=== PATIENT | female | born 1985 | race Caucasian/White ===

== ENCOUNTER 2023-01-02 12:33 | Emergency (ER) | payer BC ==
--- OUTSIDE RECORDS SUMMARY | 2023-01-02 12:36 | XMS REPORT | Continuity of Care Document ---
:1985 Author Organization [facility] t Address [address] [facility] [address] [place] [address] Care Team Providers Name Role Phone Jovi Wilks DO Primary Care Physician Mackenzie Rivera MA Attending Clinician Unavailable Lashaun Jovi Attending Clinician Roman RICHARDSON, Sebastien Shafer Attending Clinician [phone] Lg Jones CPhT Attending Clinician Unavailable Kale RICHARDSON, Ann-Marie Andrews Attending Clinician Srikanth Cotto MD Attending Clinician Vipul VALDIVIA, Zahida Catalan Attending Clinician FRANCE FRASER Attending Clinician Unavailable FRANCE FRASER Attending Clinician Unavailable Zhane Attending Clinician Unavailable Martita Hunt PA-C Attending Clinician Zahira Enrique MD Attending Clinician ZAHIRA ENRIQUE Attending Clinician Unavailable Doctor Unassigned, [place] Attending Clinician Unavailable Reba Cunha Attending Clinician PATI RAMSAY Attending Clinician Unavailable PATI RAMSAY Attending Clinician Unavailable Only, Adc Test Attending Clinician Unavailable Janie Linda Attending Clinician JANIE AVERY Attending Clinician Unavailable Zhane Admitting Clinician Unavailable EBRAHIM, RANIA Admitting Clinician Unavailable Payers Payer Name Policy Type Policy Number Effective Date Expiration Date S ource [place] [id number] 2011 00:00:00 OUT [place] [id number] 2011 00:00:00 OF [place] (PPO) Problems Condition Condition Condition Status Onset Resolution Last Treating Co mments Source Name Details Category Date Date Treatment Clinician Date Generalize Generalize Disease Active 2020-0 M ethodi d anxiety d anxiety 03-27 disorder disorder 00:00: Hospit a 00 l Irritable Irritable Disease Active 2019-0 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 00:00: Hospit a with with 00 l diarrhea diarrhea Gastro-eso Gastro-eso Disease Active 2020-0 M ethodi phageal phageal 03-27 reflux reflux 00:00: Hospita disease disease 00 l without without esophagiti esophagiti s s Overweight Overweight Disease Active 2020-0 M ethodi 03-27 st 00:00: Hospita 00 l Calculus Calculus Disease Active 2020-0 Metho di of kidney of kidney 03-27 00:00: Hospita 00 l Endometrio Endometrio Disease Active 2020-0 M ethodi sis sis 03-27 00:00: Hospita 00 l Pelvic Pelvic Disease Active 2020-0 Methodi pain pain 03-01 00:00: Hospita 00 l Dysmenorrh Dysmenorrh Disease Active 2019-0 [address] e[address] ea [address] 00:00: Hospita 00 l No known No known Disease Unive rs active active ity of problems problems [facility] Allergies, Adverse Reactions, Alerts Allergy Allergy Status Severity Reaction(s) Onset Inactive Treating Comm ents Source Name Type Date Date Clinician Latex Propensi Active Hives Univers ty to 3-08 ity of adverse 00:00: [place] reaction 00 Medical s Branch LATEX DRUG Active Hives Univers INGREDI 3-08 ity of 00:00: [place] 00 Medical Branch Latex Propensi Active Itching Methodi ty to 4-15 st adverse 00:00: Hospita reaction 00 l s to drug Family History Family Member Diagnosis Comments Start Date Stop Date Source Natural brother Asthma [facility] Natural father Other [facility] Natural mother Crohn's disease Metho [facility] Paternal grandfather Hyperlipidemia [facility] Paternal grandmother Cancer [facility] odist [facility] Social History Social Habit Start Date Stop Date Quantity Comments Source Sexual orientation [facility] Alcohol intake 2022-10-20 2022-10-20 Current drinker [facility]o dist 00:00:00 00:00:00 of alcohol [facility] (finding) History of Social 2022-10-20 2022-10-[address] function 00:00:00 00:00:00 Hospital Tobacco use and 2022-04-27 2022-04-27 Smokeless [facility] exposure 00:00:00 00:00:00 tobacco non-user Hospital Exposure to 2021-07-27 2021-08-06 Not sure University of SARS-CoV-2 (event) 00:00:00 09:23:00 [facility] Alcohol Comment 2018-07-25 2018-07-25 social [facility] 00:00:00 00:00:00 Hospital Sex Ass[birth year] At [birth year] Universit y of 00:00:00 00:00:00 [facility] Smoking Status Start Date Stop Date Source Never smoked tobacco [facility] Medications Ordered Filled Start Stop Current Ordering Indication Dosage Frequency Signature Comments Components Source Medication Medication Date Date Medication? Clinician (SIG) Name Name riFAXimin 2022- No [id number] 550mg Q.83274424 Take 1 Methodi (XIFAXAN) 9-15 09-30 [id number] tablet s t 550 mg 00:00: 04:59 3D (550 mg Hospita tablet 00 :00 total) by l mouth 3 (three) times a day for 14 days. sertraline Yes 100mg QD Take 1 Meth edwin (ZOLOFT) 8-[address] 100 MG 00:00: (100 mg Hospita tablet 00 total) by l mouth daily. dicyclomine Yes [id number] TAKE 1 Methodi (BENTYL) 20 7-[address] mg tablet 00:00: MOUTH 4 Hospi ta 00 TIMES A l DAY NEEDED (ABDOMINAL CRAMPS) FOR UP TO 30 DAYS. dicyclomine 2022- No [id number] TAKE 1 [facility] (BENTYL) 20 7-18 07-[address] mg tablet 00:00: 00:00 MOUTH 4 Hosp radha 00 :00 TIMES A l DAY NEEDED (ABDOMINAL CRAMPS) FOR UP TO 30 DAYS. sertraline No TAKE 1 Meth edwin (ZOLOFT) 09-13-[address] 100 MG 00:00: 00:00 MOUTH Hospita tablet 00 :00 EVERY DAY l FLUoxetine 2022- No 20mg QD Take 20 mg [facility] (PROzac) 20 08-[address] MG capsule 14:31: 00:00 nightly. Ho spita 34 :00 l dicyclomine 2022- No [id number] 20mg Q.25D Take 1 Methodi (BENTYL) 20 08-19-18 tablet (20 s t mg tablet 00:00: 00:00 mg total) Ho spita 00 :00 by mouth 4 l (four) times a day as needed (abdominal cramps) for up to 30 days. riFAXimin No [id number] 550mg Q.79993272 Take 1 Method[facility] (XIFAXAN) 08-19-11 [id number] tablet s t 550 mg 00:00: 04:59 3D (550 mg Hospita tablet 00 :00 total) by l mouth 3 (three) times a day for 14 days. fluconazole No Take 1 Met hodi (DIFLUCAN) 04-[address] 150 MG 00:00: 00:00 mouth Hospita tablet 00 :00 every 72 l hours for 3 total doses. nystatin-tr Apply Meth edwin iamcinolone 04-[address] (MYCOLOG 00:00: 00:00 to Hospita II) 00 :00 affected l 100,000-0.1 area(s) unit/g-% twice cream daily. Therapy should be discontinu ed when control is achieved or if symptoms persist for >25 days of therapy. nitrofurant 2022- No [id number] 100mg Q.5D Take 1 Methodi oin, 1 02-[address] macrocrysta 00:00: 05:59 (100 mg Ho spita l-monohydra 00 :00 total) by l te, mouth 2 (Macrobid) (two) 100 MG times a capsule day for 7 days. sertraline 2022- No 100mg QD Take 1 Met hodi (ZOLOFT) 03-12 07-[address] 100 MG 00:00: 00:00 (100 mg Hospita tablet 00 :00 total) by l mouth daily. FLUoxetine Yes 10mg Take 10 mg U nivers 10 mg 6-09 by mouth ity of capsule 09:31: daily. [address] FLUoxetine 0 Yes 10mg Take 10 mg U nivers 10 mg 6-09 by mouth ity of capsule 09:31: daily. [address] diclofenac 2018-02 No Take 2 Meth edwin (VOLTAREN) 0-[address] 50 MG EC 00:00: 00:00 mouth, Hospit a tablet 00 :00 then 1 l tablet by mouth every 8 hours, as directed, for pelvic pain. Immunizations Ordered Immunization Filled Immunization Date Status Commen ts Source Name Name Tdap Unknown Completed [facility] Vital Signs Vital Name Observation Time Observation Value Comments Source Systolic blood 2021-08-06 14:26:00 106 mm[facility]Hg[facility] Diastolic blood 2021-08-06 14:26:00 71 mm[Hg] [facility] [place] Heart rate 2021-08-06 14:26:00 76 /min [facility] Body temperature 2021-08-06 14:26:00 37.17 Rika [facility] Respiratory rate 2021-08-06 14:26:00 18 /min [facility] Body height 2021-08-06 14:26:00 160 cm [facility] Body weight 2021-08-06 14:26:00 72.031 kg [facility] BMI 2021-08-06 14:26:00 28.13 kg/m2 [facility] Oxygen saturation in 2021-08-06 14:26:00 99 /min [facility] Arterial blood by [facility] Pulse oximetry Branch Systolic blood 2022-10-20 18:01:00 109 mm[Hg] Method [facility] pressure Diastolic blood 2022-10-20 18:01:00 78 mm[Hg] [facility] pressure Heart rate 2022-10-20 18:01:00 69 /min [facility] Body height 2022-10-20 18:01:00 160 cm [facility] Body weight 2022-10-20 18:01:00 72.576 kg [facility] BMI 2022-10-20 18:01:00 28.34 kg/m2 [facility] Body temperature 2022-08-19 19:20:00 36.72 Rika [facility] Respiratory rate 2022-08-19 19:20:00 12 /min [facility] Procedures Procedure Date / Time Performing Clinician Source Performed THYROID STIMULATING 2022-10-20 18:15:00 [facility] HORMONE URINALYSIS, AUTOMATED 2022-10-20 18:15:00 [facility] WITH MICROSCOPY LIPID PANEL 2022-10-20 18:15:00 [facility] Ho spital CBC WITH PLATELET AND 2022-10-20 18:15:00 [facility] DIFFERENTIAL COMPREHENSIVE METABOLIC 2022-10-20 18:15:00 [facility] PANEL HEMOGLOBIN A1C 2022-10-20 18:15:00 [facility] spital VITAMIN D 25 HYDROXY 2022-10-20 18:15:00 [facility] LEVEL LIPIDS, CALCULATED 2022-10-20 18:15:00 [facility] ZZCELIAC DISEASE 2022-08-19 20:09:[address] [facility] DIAGNOSTIC PANEL (TTG, Soni TRACI) VITAMIN B12 LEVEL 2022-08-19 20:09:00 [facility] Soni FERRITIN LEVEL 2022-08-19 20:09:[address] [facility] Soni TOTAL IRON BINDING 2022-08-19 20:09:00 [facility] CAPACITY Soni CBC WITH PLATELET AND 2022-08-19 20:09:00 Schiesser, Sebastien [facility] DIFFERENTIAL Soni COMPREHENSIVE METABOLIC 2022-08-19 20:09:00 Sebastien [facility] PANEL Soni C-REACTIVE PROTEIN 2022-08-19 20:09:00 [facility] Soni NUSWAB BV AND MICHELLE, 2022-04-27 [facility]:27[facility] WILLIAM URINE CULTURE 2022-03-26 16:27:00 Zahida Lindo [facility] HB ECG ROUTINE & RHYTHM 2021-08-06 14:34:19 Martita Hunt [facility] Plan of Care Planned Activity Planned Date Details Comments Source Future Scheduled 2022-12-22 Screening for [facility] Test 04:45:08 malignant neoplasm of cervix (procedure) [code = 711691791] Future Scheduled 2022-12-22 INFLUENZA VACCINE Method [facility] Test 04:45:08 (#1) [code = INFLUENZA VACCINE (#1)] Future Scheduled 2022-12-22 COVID-19 VACCINE [facility] Test 04:45:08 (#1) [code = COVID-19 VACCINE (#1)] Future Scheduled 2022-12-22 Hepatitis [facility] Test 04:45:08 screening (procedure) [code = 574929825] Encounters Start End Encounter Admission Attending Care Care Encounter Source Date/Time Date/Time Type Type Clinicians Facility Department ID 2022-11-12 2022-11-12 Orders Miguel, 1.2.840.1 [id number] Methodi 00:00:00 00:00:00 Only Mackenzie 82286.1.[address] 3.430.2.7 Hospit a .3.751359 l .8 2022-10-20 2022-10-22 Office Jovi Wilks 1.2.840.1 [id number] Methodi 13:00:00 16:41:41 Visit Belinda 90989.1.[address] 3.430.2.7 Hospit a .3.451553 l .8 2022-10-20 2022-10-22 Outpatient JOVI WILKS [facility] [id number] [facility] 00:00:00 00:00:00 029 Method i 2022-10-20 2022-10-20 Travel 1.2.840.1 1.2.474.820 [id number] Methodi 00:00:00 00:00:[address] 3.430.2.7 0.2.7.3.698 Ho spita .3.156469 084.8 l .8 2022-10-06 2022-10-06 Refill Jovi Wilks 1.2.840.1 [id number] Methodi 00:00:00 00:00:[address] 3.430.2.7 Hospit a .3.348432 l .8 2022-09-16 2022-09-16 Refill Roman, 1.2.840.1 [id number] Methodi 00:00:00 00:00:00 Sebastien Shafer [address]99.1.[address] 3.430.2.7 Hospit a .3.639708 l .8 2022-09-12 2022-09-12 Refill Schhelenaser, 1.2.840.1 [id number] Methodi 00:00:00 00:00:00 Sebastien Shafer 97268.1.[address] 3.430.2.7 Hospit a .3.480230 l .8 2022-09-12 2022-09-12 Refill Jovi Wilks 1.2.840.1 [id number] Methodi 00:00:00 00:00:[address] 3.430.2.7 Hospit a .3.439267 l .8 2022-08-19 2022-08-19 Office Roman, 1.2.840.1 [id number] Methodi 14:00:00 15:16:19 Visit Sebastien Shafer 69128.1.[address] 3.430.2.7 Hospit a .3.640882 l .8 2022-08-19 2022-08-19 Outpatient ROMAN [facility] [id number] Cosmos 00:00:00 00:00:[address] SEBAST[address]EN [address] 2022-08-19 2022-08-19 Telephone Robert, 1.2.840.1 [id number] Methodi 00:00:00 00:00:[address] 3.430.2.7 Hospit a .3.022689 l .8 2022-07-16 2022-07-16 Travel 1.2.840.1 1.2.207.053 [id number] Methodi 00:00:00 00:00:[address] 3.430.2.7 0.2.7.3.698 Ho spita .3.358148 084.8 l .8 2022-06-22 2022-06-22 Abstract Ann-Marie Henley 1.2.840.1 [id number] Methodi 00:00:00 00:00:[address] 3.430.2.7 Hospit a .3.864921 l .8 2022-06-17 2022-06-17 Travel 1.2.840.1 1.2.413.220 [id number] Methodi 00:00:00 00:00:[address] 3.430.2.7 0.2.7.3.698 Ho spita .3.442239 084.8 l .8 2022-04-27 2022-04-27 Office Yadiel 1.2.840.1 [id number] Methodi 09:20:00 11:05:26 Visit Srikanth 67393.1.[address] 3.430.2.7 Hospit a .3.296304 l .8 2022-04-27 2022-04-27 Outpatient YADIEL [facility] [id number] [facility] 00:00:00 00:00:00 SRI[address] 2022-03-26 2022-03-26 Office Vipul, 1.2.840.1 [id number] Methodi 09:15:00 11:38:49 Visit Zahida Catalan 81157.1.1 307 [address] t 3.430.2.7 Hospit a .3.466284 l .8 2022-03-26 2022-03-26 Travel 1.2.840.1 1.2.803.882 [id number] Methodi 00:00:00 00:00:[address] 3.430.2.7 0.2.7.3.698 Ho spita .3.488750 084.8 l .8 2022-03-26 2022-03-26 Outpatient VIPUL [facility] [id number] Cosmos 00:00:00 00:00:00 ZAHIDA [address] 2022-03-24 2022-03-24 Telephone Yadiel, 1.2.840.1 [id number] Methodi 00:00:00 00:00:[address] 3.430.2.7 Hospit a .3.167158 l .8 2021-11-26 2021-11-26 Outpatient R FRANCE FRASER [facility] 1 [id number] [facility] 10:30:00 10:30:00 FRANCE FRASER [facility] 2021-10-13 2021-10-13 Outpatient FOG_Luo_Ran AOSM AO 634 8036-20 Tanya 00:00:00 00:00:00 Bud [id number] [facility] 2021-10-07 2021-10-07 Outpatient FOG_Luo_Ran AOSM AOSM 634 8036-20 Tanya 00:00:00 00:00:00 Bud [id number] [facility] 2021-08-06 2021-08-06 Office Martita Hunt [facility] 1.2.840.114 [id number] [facility] 09:30:00 10:00:[address] [facility] 350.1.13.10 it[place] [id number] [address] OFFICE [facility] 2021-08-06 2021-08-06 Outpatient R IVA [facility] [id number] Univers 09:30:00 09:30:00 ZAHIRA ity [facility] 2021-07-29 2021-07-29 Patient Doctor [facility] 1.2.840.114 [id number] Univers 00:00:00 00:00:00 Secure Msg Unassigned, HEALTH 350.1.13.10 ity [place] [id number] [address] OFFICE [facility] 2021-07-06 2021-07-06 Telephone Anupam [facility] 1.2.142.810 [id number] Univers 00:00:00 00:00:00 Sinju HEALTH 350.1.13.10 it y of [place] 4.2.7.2.686 [place] [id number] [address] OFFICE [facility] 2021-06-03 2021-06-03 Outpatient R PATI RAMSAY [facility] [id number] Univers 11:30:00 11:30:00 PATI RAMSAY [facility] 2021-06-02 2021-06-02 Orders Doctor ANN-MARIE 1.2.840.114 [id number] Univers 00:00:00 00:00:00 Only Unassigned, ELLIOT 350.1.13.10 ity of [place] [facility] 4.2.7.2.686 Angel[place] as [id number] [address] 2021-05-20 2021-05-20 Outpatient R PATI RAMSAY [facility] [id number] Univers 08:00:00 23:59:00 PATI RAMSAY [facility] 2021-05-19 2021-05-19 Outpatient R PATI RAMSAY [facility] [id number] Univers 08:17:21 23:59:00 PATI RAMSAY [facility] 2021-05-19 2021-05-19 [facility] MICHEL Ramsay 1.2.840.114 [id number] Univers 08:17:21 23:59:00 Encounter Pati Y HEALTH 350.1.13.10 ity of [place] [id number] [facility] [address] 2021-05-19 2021-05-19 Hospital Nav MICHEL 1.2.840.114 [id number] Univers 08:16:55 08:16:55 Encounter Pati Y HEALTH 350.1.13.10 ity of [place] [id number] [facility] [address] 2021-05-15 2021-05-15 Laboratory Only, Adc Test [facility] 1.2.840. 114 [id number] Univers 16:15:00 16:30:00 [facility] 350.1.13.10 [place] [id number] [facility] [address] 2021-05-15 2021-05-15 Outpatient R PATI RAMSAY [facility] [id number] Univers 16:15:00 16:15:00 [facility] 2021-05-15 2021-05-15 Orders Doctor ANN-MARIE 1.2.840.114 [id number] Univers 00:00:00 00:00:00 Only Unassigned, ELLIOT 350.1.13.10 ity of [place] [facility] 4.2.7.2.686 [place] as [id number] [facility] [address] 2021-05-12 2021-05-12 Office MICHEL Ramsay 1.2.362.387 [id number] Univers 10:30:00 11:00:00 Visit Pati Y HEALTH 350.1.13.10 i ty of [place] [id number] [facility] [address] 2021-05-12 2021-05-12 Outpatient R PATI RAMSAY [facility] [id number] Univers 10:30:00 10:30:00 PATI RAMSAY [facility] 2021-05-12 2021-05-12 [facility] [id number] Univers 10:30:00 10:30:00 PATI RAMSAY [facility] 2021-05-12 2021-05-12 Outpatient R PATI RAMSAY [facility] [id number] Univers 10:30:00 10:30:00 PATI RAMSAY [facility] 2021-05-05 2021-05-05 Emergency Ebneliliya, [facility] 1.2.840.114 [id number] Univers 17:50:00 20:06:00 Janie SHIELDS 350.1.13.10 i ty [facility] 4.2.7.2.686 [facility] [id number] [place] [id number] Branch 2021-05-05 2021-05-05 Emergency X BENNIE, [facility] ERT [id number] Univers 17:50:00 20:06:00 JANIE eason [facility] 2020-10-21 2020-10-21 Outpatient [facility] [id number] [place] 00:00:00 00:00:00 SRIKANTH [address] 2020-03-03 2020-03-03 Outpatient [facility], [facility] [id number] [place] 00:00:00 00:00:00 SRIKANTH [address] 2019-12-19 2019-12-19 Outpatient [facility] [id number] [facility] 00:00:00 00:00:00 SRIKANTH [address] 2019-10-23 2019-10-23 Outpatient [facility] [id number] [facility] 00:00:00 00:00:00 SRIKANTH [address] Results Test Description Test Time Test Comments Results Result Comments Source Thyroid stimulating hormone 2022-10-20 21:17:00 Test Item Value Reference Range Interpretation Comme nts TSH (test code = 1.10 See_Comment [Automated message] The 7240081) system which ge nerated this result transmit luis reference range: 0.40 - 4 .00 uIU/mL. The reference r pa was not used to interpr et this result as normal/abnor mal. LEONARD (test code = LEONARD) Items were attached to this order: xgld [facility] 25 hydroxy [id number] 21:17:00 Test Item Value Reference Range Interpretation Comments Vitamin D, 25-hydroxy 22 ng/mL 30-100 L (test code = 1988-3) LEONARD (test code = LEONARD) Items were attached to this order: xgld Lab Interpretation (test Abnormal code = 68897-7) [facility] [id number] 21:06:00 Test Item Value Reference Range Interpretation Comments Cholesterol (test 267 mg/dL 140-200 H code = 2093-3) Triglycerides (test 75 mg/dL <=150 code = 2571-8) HDL cholesterol (test 52 mg/dL >=40 code = 2085-9) Cholesterol/HDL ratio 5.1 ratio Risk A ssociated (test code = 97988-7) with C hol/HDL ratios: Risk Males Females1 /2 average 3.43 3.27average 4.9 7 4.442X average 9.55 7.053X average 23.39 11.0 LEONARD (test code = LEONARD) Items were attached to this order: xgldLAB ORDER FASTING [356592]Question s: Quantity: 1 Order Class: (department specific) Priority: (department specific) Modifiers: (none) Order Defaults Phase of Care: The maximum orderable quantity for this procedure is 3 Quantity: LAB ORDER FASTING [916421] Questions: Quantity: 1 Order Class: (department specific) Priority: (department specific) Modifiers: (none) Order Defaults Phase of Care: The maximum orderable quantity for this procedure is 3 Quantity: Lab Interpretation Abnormal (test code = 16255-8) [facility], [id number] 21:06:00 Test Item Value Reference Range Interpretation Comments LDL cholesterol calculated 200 mg/dL 60-130 H (test code = 2876) VLDL cholesterol becky (test 15 mg/dL 5-30 code = 3568) LEONARD (test code = LEONARD) Items were attached to this order: xgld Lab Interpretation (test Abnormal code = 07559-0) [facility] metabolic [id number] 21:05:00 Test Item Value Reference Range Interpretation Comments Hemolysis (test <15 <=15 code = 3440) Sodium (test code = 140 mmol/L 135-221 5001064) Potassium (test 4.0 mmol/L 3.5-5.0 code = 1153209) Chloride (test code 103 mmol/L 98-107 = 2075-0) CO2 (test code = 25 mmol/L 23-32 2027-) Glucose (test code 83 mg/dL 60-100 = 2345-7) BUN (test code = 16 mg/dL 7-17 5187125) Creatinine (test 0.7 mg/dL 0.6-1.0 code = 1702379) eGFR MDRD (test 93.6 See_Comment If code = 8846) Spanish, multi ply the GFR by 1.21 0. [Automated mess age] The system [employer] generated this result transmit luis reference range : 60.0 - 137.0 mL/min/1.73m^2. The reference range was not used to interpret this result as normal/abnormal . Total bilirubin 0.3 mg/dL 0.2-1.3 (test code = 1974-2) Alkaline 118 U/L 38-126 phosphatase (test code = 6768-6) Protein (test code 7.0 g/dL 6.0-8.5 = 2885-2) Albumin (test code 4.2 g/dL 3.5-5.0 = 9315643) Calcium (test code 9.3 mg/dL 8.4-10.6 = 8338929) AST (test code = 15 U/L 8-35 0-8) ALT (test code = 12 U/L 7-44 2-6) Anion gap (test 16.0 10.0-20.0 code = 8582455) BUN/creatinine 23.0 7.0-25.0 ratio (test code = 3097-3) LEONARD (test code = Items were LEONARD) attached to this order: xgld [facility] [id number] 20:55:00 Test Item Value Reference Range Interpretation Comments Hemoglobin A1C 4.9 % Glycated (test code = Hemoglobin 4548-4) Evaluation Excellent Contr ol < 6.4 Non-Diabe tic ranges < 5.6 Estimated average 85 glucose (eAG) (test code = 2783) LEONARD (test code = Items were LEONARD) attached to this order: xgld [facility], automated with [id number] 20:20:00 Test Item Value Reference Range Interpretation Comments Color, UA (test code Yellow Colorless - = 1268161) Yellow Clarity, UA (test Clear clear code = 8862) Specific gravity, UA 1.010-1.030 (test code = 9506911) pH, UA (test code = 6.0 5.0-8.5 3068831) Leukocyte esterase, Negative NEGATIVE UA (test code = 2883775) Nitrite, UA (test Negative NEGATIVE code = 7070921) Protein, UA (test NORMAL See_Comment [Automate d code = 8865) message] The system which generated this result transmit luis reference range : NORMAL, < 30 mg/dL. The reference range was not used to interpret this result as normal/abnormal . Glucose, UA (test NORMAL See_Comment [Automate d code = 8863) message] The system which generated this result transmit luis reference range : NORMAL, < 50 mg/dL. The reference range was not used to interpret this result as normal/abnormal . Ketones, UA (test NORMAL See_Comment [Automate d code = 8864) message] The system which generated this result transmit luis reference range : NORMAL, < 5 mg/ dL. The reference range was not u sed to interpret th is result as normal/abnormal . Urobilinogen, UA NORMAL See_Comment [Automated (test code = 3505705) messag e] The system which generated this result transmit luis reference range : NORMAL, < 1 E.U./dL. The reference range was not used to interpret this result as normal/abnormal . Bilirubin, UA (test Negative NEGATIVE code = 0370669) Blood, UA (test code NEGATIVE NEGATIVE = 3096399) WBC, UA (test code = 2 See_Comment [Autom ated 66260-8) message] The system which generated this result transmit luis reference range : 0 - 5 / HPF. The reference range was not used to interpret this result as normal/abnormal . RBC, UA (test code = 2 See_Comment [Autom ated 5320746) message] The system which generated this result transmit lius reference range : 0 - 5 / HPF. The reference range was not used to interpret this result as normal/abnormal . Bacteria, UA (test RARE NONE - OCC / HPF code = 4391962) Squamous epithelial 51 See_Comment H [Automa luis cells, UA (test code message ] The = 3009) system which generated this result transmit luis reference range : 0 - 16 / LPF. The reference range was not used to interpret this result as normal/abnormal . Mucus, UA (test code MANY NONE - MOD / LPF = 8247-9) LEONARD (test code = LEONARD) Items were attached to this order: xgld Lab Interpretation Abnormal (test code = 38723-3) [facility] with platelet and [id number] 20:09:00 Test Item Value Reference Range Interpretation Comments WBC (test code = 6690-2) 8.3 10^3/uL 4.0-10.6 RBC (test code = 9631749) 4.55 10^6/uL 4.15-4.90 HGB (test code = 280) 14.6 g/dL 12.0-16.0 HCT (test code = 3379980) 44.0 % 37.0-48.0 MCV (test code = 7927764) 96.7 fL 80.0-98.0 MCH (test code = 8729476) 32.1 pg 28.0-33.0 MCHC (test code = 33.2 g/dL 32.0-36.0 1013868) RDW (test code = 2973) 12.0 % 10.6-15.4 Platelet count (test code 328 10^3/uL 150-400 = 777-3) MPV (test code = 7534518) 9.4 fL 9.4-12.4 Nucleated RBC (test code 0.0 % 0.0-1.0 = 254) Absolute nRBC (test code 0.0 10^3/uL 0.0-0.0 = 4301611) Neutrophils (test code = 64.2 % 45.0-74.0 0599217) Lymphocytes (test code = 25.7 % 16.0-45.0 736-9) Monocytes (test code = 7.9 % 4.0-10.0 5905-5) Eosinophils (test code = 1.2 % 0.0-5.0 1352) Basophils (test code = 0.6 % 0.0-2.0 706-2) Immature granulocytes 0.4 % 0.0-1.0 (test code = 1594) Neutrophils, absolute 5.4 10^3/uL 1.6-9.0 (test code = 1801) Lymphocytes, absolute 2.1 10^3/uL 0.4-4.4 (test code = 8514298) Monocytes, absolute (test 0.7 10^3/uL 0.2-1.7 code = 1259298) Eosinophils, absolute 0.1 10^3/uL 0.0-1.7 (test code = 1353) Basophils, absolute (test 0.1 10^3/uL 0.0-0.3 code = 929) Immature granulocytes, 0.0 10^3/uL 0.0-0.0 absolute (test code = 2839) LEONARD (test code = LEONARD) Items were attached to this order: [facility]12 [id number] 16:43:00 Test Item Value Reference Interpretation Comments Range Vitamin B12 300 pg/mL 200-1100 Please Note: A lthough the (test code = reference range for 2131-10) [id number] is 2 00-1100 pg/mL, it has b een reported that between5 a nd 10% of patients with v alues between 200 and 400pg/m L may experience neur opsychiatric and hematologic abnormalities due to occult B 12 deficiency; les s than 1%of patients with v alues above 400 pg/mL will have symptoms. LEONARD (test FASTING:UNKNOWN code = LEONARD) FASTING: UNKNOWN RAC (test Performing code = RAC) Organization Information: Site ID: BELLA Name: [facility] Address: [address] [place] [address] Director: [facility] HospitalFerritin [id number] 16:43:00 Test Item Value Reference Range Interpretation Comments Ferritin level (test 41 ng/mL 16154 code = 2276-4) LEONARD (test code = LEONARD) FASTING:UNKNOWN FASTING: UNKNOWN RAC (test code = RAC) Performing Organization Information: Site ID: RGA Name: [facility] Address: [address] [place] [id number] Director: [facility] HospitalC-reactive [id number] 16:43:00 Test Item Value Reference Range Interpretation Comments CRP (test code = 5.1 mg/L <=8.0 1988-5) LEONARD (test code = FASTING:UNKNOWN FASTING: LEONARD) UNKNOWN RAC (test code = Performing Organization RAC) Information: Site ID: DOMINGAA Name: [facility] Address: [address] [place] [address] Director: Vicenta Munson [facility] disease [id number] 16:43:00 Test Item Value Reference Interpretation Comments Range Interpretation (test SEE NOTE No sero logical code = 38465-8) evidence of celiac disease.tTG IgA may normalize i n individuals wit h celiac disease whomaintain a gluten-free diet. Consider HLA DQ2 and EP5vibivls to rule out celiac disease. Celiac disease isextremely rar e in the absence of DQ2 or DQ8. Tissue <1.0 U/mL Units Value transglutaminase Ab, Interpr etation-- IgA (test code = --------- 84032-3) < 1 5.0 Antibody no t detected> or = 15.0 Antibody detected IgA (test code = 191 mg/dL 47-310 2458-8) LEONARD (test code = LEONARD) FASTING:UNKNOWN FASTING: UNKNOWN RAC (test code = RAC) Performing Organization Information: Site ID: EZ Name: [facility], Address: [address] [place] [address] Director: Marie Bolden MD,PhD,ELENA [facility] iron binding [id number] 16:43:00 Test Item Value Reference Range Interpretation Comments Iron level (test 57 See_Comment [Automated code = 2498-4) message] The system which generated this result transmit luis reference range : 40 - 190 mcg/dL . The reference range was not u sed to interpret th is result as normal/abnormal . Iron binding 280 See_Comment [Automated capacity (test message] The code = 2500-7) system which generated this result transmit luis reference range : 250 - 450 mcg/d L (calc). The reference range was not used to interpret this result as normal/abnormal . Iron saturation 20 See_Comment [Automated (test code = message] The 2502-3) system which generated this result transmit luis reference range : 16 - 45 % (calc ). The reference range was not u sed to interpret th is result as normal/abnormal . LEONARD (test code = FASTING:UNKNOWN LEONARD) FASTING: UNKNOWN RAC (test code = Performing RAC) Organization Information: Site ID: RGA Name: [facility] Address: [address] [place] [phone] Director: Vicenta Munson [facility] CampusKevinuSwab BV and Michelle, [id number] 12:11:00 Test Item Value Reference Interpretation Comments Range Atopobium Low - 0 Score vaginae (test code = 08190-9) BVAB 2 (test Low - 0 Score code = 91369-7) Megasphaera Low - 0 Score Calculate total score by species (test adding the 3 i ndividual code = bacterialvagino sis (BV) 17022-4) marker scores t ogether. Total score jhonatan nterpreted as follows:Tota l score 0-1: Indicates the a bsence of BV.Total score 2: Indeterminate f or BV. Additional clin ical data should be evalu ated to establish a angel gnosis.Total score 3-6: Keely cates the presence of BV. This test was developed a nd its performance characteristics determined by [employer]. It has not been cleared or appr ovedby the Food and Drug Administration. Michelle Negative Negative albicans, WILLIAM (test code = 03709-8) C. glabrata, Negative Negative DNA (test code = 42302-7) LEONARD (test code Test(s) = LEONARD) 135302-Hrtlasu albicans, WILLIAM; 700905-Gxsdjna glabrata, NAAwas developed and its performance characteristics determinedby [facility]. It has not been cleared or approved by the Foodand Drug Administration.Per formed at: 01 - [facility] [id number] [id number] Director: George Huynh MD, Phone: [phone] [facility] CampusUrine [id number] 03:06:00Urine cultureMixed urogenital floraLess than 10,000 colonies/mL [facility]
--- NOTE | 2023-01-02 13:04 | EDPHYS ---
Physician Documentation [facility] Name: Maria Luisa Calzada Age: 37 yrs Sex: Female : 1985 Arrival Date: 01/02/2023 Time: 12:33 Bed IW5 Private MD: ED Physician Dustin Juarez HPI: 01/02 12:56 This 37 yrs old Female presents to ER via Ambulatory with complaints of Ear Pain. jh7 12:56 The patient presents with pain, moderate. The complaints affect the left ear. Onset: jh7 The symptoms/episode began/occurred acutely. Associated signs and symptoms: The patient has no apparent associated signs or symptoms. Historical: - Allergies: 12:59 Latex, Natural Rubber; cm10 - Home Meds: 12:56 sertraline oral [Active]; cm10 - Immunization history:: Adult Immunizations unknown. - Social history:: Smoking status: Patient denies any tobacco usage or history of. ROS: 12:56 Constitutional: Negative for fever, chills, and weight loss, Eyes: Negative for injury, jh7 pain, redness, and discharge, Neck: Negative for injury, pain, and swelling, Cardiovascular: Negative for chest pain, palpitations, and edema, Respiratory: Negative for shortness of breath, cough, wheezing, and pleuritic chest pain, Skin: Negative for injury, rash, and discoloration, Neuro: Negative for headache, weakness, numbness, tingling, and seizure, 12:56 ENT: Positive for ear pain, 12:56 All other systems are negative, Exam: 12:56 Constitutional: This is a well developed, well nourished patient who is awake, alert, jh7 and in no acute distress. Head/Face: Normocephalic, atraumatic. Neck: Trachea midline, no thyromegaly or masses palpated, and no cervical lymphadenopathy. Supple, full range of motion without nuchal rigidity, or vertebral point tenderness. No Meningismus. Cardiovascular: Regular rate and rhythm with a normal S1 and S2. No gallops, murmurs, or rubs. Normal PMI, no JVD. No pulse deficits. Respiratory: Lungs have equal breath sounds bilaterally, clear to auscultation and percussion. No rales, rhonchi or wheezes noted. No increased work of breathing, no retractions or nasal flaring. Skin: Warm, dry with normal turgor. Normal color with no rashes, no lesions, and no evidence of cellulitis. MS/ Extremity: Pulses equal, no cyanosis. Neurovascular intact. Full, normal range of motion. Neuro: Awake and alert, GCS 15, oriented to person, place, time, and situation. Normal gait. 12:56 ENT: External ear(s): are unremarkable, Ear canal(s): are normal, TM's: are normal, no acute changes, Mouth: is normal, Dental exam: normal, Vital Signs: 12:55 BP 124 / 87; Pulse 70; Resp 18 S; Temp 98.3(TE); Pulse Ox 100% on R/A; Weight 72.57 kg; cm10 Height 5 ft. 3 in. ; Pain 4/10; 12:55 Body Mass Index 28.34 (72.57 kg, 160.02 cm) cm10 12:55 Pain Scale: Adult cm10 MDM: 12:37 Patient medically screened. [facility] 13:30 Differential diagnosis: otitis media, otitis externa, ruptured TM, foreign body, acute jh7 otalgia. Data reviewed: vital signs, nurses notes. I considered the following discharge prescriptions or medication management in the emergency department Medications were administered in the Emergency Department. See MAR. Counseling: I had a detailed discussion with the patient and/or guardian regarding the historical points, exam findings, and any diagnostic results supporting the discharge/admit diagnosis, to return to the emergency department if symptoms worsen or persist or if there are any questions or concerns that arise at home. Administered Medications: 13:27 Drug: Ketorolac IM 60 mg IM once Route: IM; Site: left ventrogluteal; hb 13:27 Drug: Cyclobenzaprine PO 10 mg PO once Route: PO; hb Disposition: 01/03 09:04 Co-signature as Attending Physician, Dustin Juarez MD I reviewed the patient's care rn provided by the Advanced Practice Provider and agree with the diagnosis and treatment plan. Disposition Summary: 01/02/23 13:04 Discharge Ordered Notes: Location: Home [facility] Problem: new jh7 Symptoms: are unchanged jh7 Condition: Stable jh7 Diagnosis - Otalgia, left ear jh7 Followup: 7 - With: Private Physician - When: 2 - 3 days - Reason: Recheck today's complaints Discharge Instructions: - Discharge Summary Sheet 7 - Earache, Adult [facility] Forms: - Medication Reconciliation Form 7 - Thank You Letter 7 - Patient Portal Instructions [facility] - Leadership Thank You Letter [facility] Prescriptions: - Medrol (Bharathi) 4 mg Oral Tablets, Dose Pack - take 1 tablet ORAL route as directed - follow package instructions; 1 packet; [facility] Refills: 0, Product Selection Permitted Signatures: Dustin Juarez MD MD rn Baxter, Heather RN RN Deepthi Gotti FNP [place] [phone] Jenae Clark RN RN 10 Corrections: (The following items were deleted from the chart) 01/02 12:59 12:56 Allergies: No Known Allergies; cm10 cm10
--- NOTE | 2023-01-02 13:04 | ER ---
Nurse's Notes [facility] Name: Maria Luisa Calzada Age: 37 yrs Sex: Female : 1985 Arrival Date: 01/02/2023 Time: 12:33 Bed IW5 Private MD: Diagnosis: Otalgia, left ear Presentation: 01/02 12:55 Chief complaint: Patient states: left jaw pain that radiates to her ear onset this cm10 morning. Pt states that the pain is worse when she tries to eat. Coronavirus screen: Vaccine status: Patient reports receiving the 2nd dose of the covid vaccine. Client denies travel out of the [place] in the last 14 days. Ebola Screen: Patient denies travel to an Ebola-affected area in the 21 days before illness onset. No symptoms or risks identified at this time. Initial Sepsis Screen: Does the patient meet any 2 criteria? No. Patient's initial sepsis screen is negative. Does the patient have a suspected source of infection? No. Patient's initial sepsis screen is negative. Risk Assessment: Do you want to hurt yourself or someone else? Patient reports no desire to harm self or others. Onset of symptoms was January 02, 2023. 12:55 Method Of Arrival: Ambulatory cm10 12:55 Acuity: CHANTELL 4 cm10 Triage Assessment: 12:56 General: Appears in no apparent distress. comfortable, Behavior is calm, cooperative. cm10 Pain: Complains of pain in left ear. EENT: Reports pain in left ear. Neuro: No deficits noted. Wong Agitation-Sedation Scale (RASS): 0 - Alert and Calm Level of Consciousness is awake, alert, obeys commands, Oriented to person, place, time, situation. Cardiovascular: No deficits noted. Patient's skin is warm and dry. Respiratory: No deficits noted. Airway is patent Respiratory effort is even, unlabored, Respiratory pattern is regular, symmetrical. GI: No deficits noted. No signs and/or symptoms were reported involving the gastrointestinal system. : No deficits noted. No signs and/or symptoms were reported regarding the genitourinary system. Derm: No deficits noted. No signs and/or symptoms reported regarding the dermatologic system. Skin is intact, Skin is pink, warm \T\ dry. Musculoskeletal: No deficits noted. No signs and/or symptoms reported regarding the musculoskeletal system. Historical: - Allergies: 12:59 Latex, Natural Rubber; cm10 - Home Meds: 12:56 sertraline oral [Active]; cm10 - Immunization history:: Adult Immunizations unknown. - Social history:: Smoking status: Patient denies any tobacco usage or history of. Screenin:58 [facility] ED Fall Risk Assessment (Adult) History of falling in the last 3 months, cm10 including since admission No falls in past 3 months (0 pts) Confusion or Disorientation No (0 pts) Intoxicated or Sedated No (0 pts) Impaired Gait No (0 pts) Mobility Assist Device Used No (0 pt) Altered Elimination No (0 pt) Score/Fall Risk Level 0 - 2 = Low Risk Oriented to surroundings, Maintained a safe environment, Hourly rounding (assess needs \T\ fall precautionary measures) done. Abuse screen: Denies threats or abuse. Denies injuries from another. Nutritional screening: No deficits noted. Tuberculosis screening: No symptoms or risk factors identified. Assessment: 13:25 Reassessment: Patient appears in no apparent distress at this time. Patient and/or hb family updated on plan of care and expected duration. Pain level reassessed. Patient is alert, oriented x 3, equal unlabored respirations, skin warm/dry/pink. Vital Signs: 12:55 BP 124 / 87; Pulse 70; Resp 18 S; Temp 98.3(TE); Pulse Ox 100% on R/A; Weight 72.57 kg; cm10 Height 5 ft. 3 in. ; Pain 4/10; 12:55 Body Mass Index 28.34 (72.57 kg, 160.02 cm) cm10 12:55 Pain Scale: Adult cm10 ED Course: 12:35 Patient arrived in ED. mr 12:37 Deepthi Gotti FNP is [facility]. jh7 12:37 Dustin Juarez MD is Attending Physician. jh7 12:56 Triage completed. cm10 12:58 Arm band placed on Patient placed in waiting room. cm10 12:58 Patient has correct armband on for positive identification. Provided Education on: ER cm10 process and procedures. . 12:58 No provider procedures requiring assistance completed. Patient did not have IV access cm10 during this emergency room visit. Administered Medications: 13:27 Drug: Ketorolac IM 60 mg IM once Route: IM; Site: left ventrogluteal; hb 13:27 Drug: Cyclobenzaprine PO 10 mg PO once Route: PO; Medication: 12:58 VIS not applicable for this client. cm10 Outcome: 13:04 Discharge ordered by MD. clay 13:25 Discharged to home ambulatory, 13:25 Condition: stable 13:25 Discharge instructions given to patient, Instructed on discharge instructions, follow up and referral plans. medication usage, Demonstrated understanding of instructions, follow-up care, medications, Prescriptions given X 1, 13:28 Patient left the ED. Signatures: Colette Arvizu, Reg Reg mr Marlene Holt, RN RN Deepthi Gotti, SHIPPING AND RECEIVING ASSISTANT SHIPPING AND RECEIVING ASSISTANT Jenae Hudson RN RN cm10 Corrections: (The following items were deleted from the chart) 12:59 12:56 Allergies: No Known Allergies; cm10 cm10
[2023-01-02 14:18] VITALS: BP 124/87; TEMP 98.3; O2SAT 100
== END 2023-01-02 13:28 | disposition home or self-care (01) ==
LOC: ER 12:33
DX: H92.02 Otalgia, left ear (principal); Z91.040 Latex allergy status; Z91.048 Other nonmedicinal substance allergy status
CPT/HCPCS: 96372; 99284

== ENCOUNTER 2023-02-08 09:46 | Emergency (ER) | payer BC ==
--- NOTE | 2023-02-08 10:41 | RAD REPORT ---
EXAM DESCRIPTION: RAD - Ankle Left 3 View - 02/08/2023 10:27 am CLINICAL HISTORY: PAIN COMPARISON: No comparisons FINDINGS: No fracture or dislocation seen.
--- NOTE | 2023-02-08 10:45 | RAD REPORT ---
EXAM DESCRIPTION: RAD - Foot Left 3 View - 02/08/2023 10:28 am CLINICAL HISTORY: PAIN COMPARISON: No comparisons FINDINGS: No fracture or dislocation seen.
--- NOTE | 2023-02-08 10:50 | ER ---
Nurse's Notes [facility] Name: Maria Luisa Calzada Age: 37 yrs Sex: Female : 1985 Arrival Date: 02/08/2023 Time: 09:46 Bed 10 Private MD: Diagnosis: Sprain of unspecified ligament of left ankle, initial encounter Presentation: 02/08 09:53 Chief complaint: Rollet left ankle when descending step stool yesterday, c/o left foot hb and ankle pain 7/10. Unable to bear weight. Coronavirus screen: At this time, the client does not indicate any symptoms associated with coronavirus-19. Ebola Screen: No symptoms or risks identified at this time. Initial Sepsis Screen: Does the patient meet any 2 criteria? No. Patient's initial sepsis screen is negative. Does the patient have a suspected source of infection? No. Patient's initial sepsis screen is negative. Risk Assessment: Do you want to hurt yourself or someone else? Patient reports no desire to harm self or others. Onset of symptoms was February 07, 2023. 09:53 Method Of Arrival: Ambulatory hb 09:53 Acuity: CHANTELL 4 hb Triage Assessment: 09:55 General: Appears in no apparent distress. Behavior is calm, cooperative. Pain: Pain hb currently is 7 out of 10 on a pain scale. EENT: No signs and/or symptoms were reported regarding the EENT system. Neuro: Level of Consciousness is awake, alert, obeys commands, Oriented to person, place, time, situation. Cardiovascular: Patient's skin is warm and dry. Respiratory: Respiratory effort is even, unlabored, Respiratory pattern is regular, symmetrical. GI: No signs and/or symptoms were reported involving the gastrointestinal system. : No signs and/or symptoms were reported regarding the genitourinary system. Derm: Skin is pink, warm \T\ dry. Musculoskeletal: Reports left ankle and foot pain. Historical: - Allergies: 09:54 Latex; hb - Home Meds: 09:54 sertraline oral [Active]; hb - PMHx: 09:54 None; hb - PSHx: 09:54 Hysterectomy; hb - Immunization history:: Adult Immunizations up to date. - Social history:: Smoking status: Patient denies any tobacco usage or history of. - Family history:: not pertinent. - Hospitalizations: : No recent hospitalization is reported. Screenin:06 [facility] ED Fall Risk Assessment (Adult) History of falling in the last 3 months, hb including since admission Yes- single mechanical fall (1 pt) Confusion or Disorientation No (0 pts) Intoxicated or Sedated No (0 pts) Impaired Gait Yes (1 pt) Mobility Assist Device Used Yes (1 pt) Altered Elimination No (0 pt) Score/Fall Risk Level 3 or more points = High Risk Oriented to surroundings, Maintained a safe environment, Educated pt \T\ family on fall prevention, incl call for assistance when getting out of bed, Hourly rounding (assess needs \T\ fall precautionary measures) done, Used ambulatory aids as needed (educated on \T\ assisted with). Abuse screen: Denies threats or abuse. Denies injuries from another. Nutritional screening: No deficits noted. Tuberculosis screening: No symptoms or risk factors identified. Assessment: 10:00 General: See triage assessment. hb 11:06 Reassessment: Patient appears in no apparent distress at this time. No changes from hb previously documented assessment. Patient and/or family updated on plan of care and expected duration. Pain level reassessed. Vital Signs: 09:53 BP 112 / 79; Pulse 86; Resp 16; Temp 97.2(TE); Pulse Ox 100% on R/A; Weight 72.57 kg; hb Height 5 ft. 3 in. ; Pain 7/10; 09:53 Body Mass Index 28.34 (72.57 kg, 160.02 cm) hb 09:53 Pain Scale: Adult hb ED Course: 09:49 Patient arrived in ED. mr 09:49 Dustin Juarez MD is Attending Physician. rn 09:54 Triage completed. hb 09:57 Arm band placed on. hb 10:30 XRAY Ankle LEFT 3 view In Process Unspecified. EDMS 10:30 XRAY Foot LEFT 3 View In Process Unspecified. EDMS 11:06 Patient has correct armband on for positive identification. hb 11:08 Provided Education on: walking boot operation. hb 11:08 No provider procedures requiring assistance completed. Patient did not have IV access hb during this emergency room visit. Administered Medications: No medications were administered Medication: 11:06 VIS not applicable for this client. hb Outcome: 10:50 Discharge ordered by . rn 11:08 Discharged to home via wheelchair, with crutches, hb 11:08 Condition: stable 11:08 Discharge instructions given to patient, Instructed on discharge instructions, follow up and referral plans. medication usage, Demonstrated understanding of instructions, follow-up care, medications, :08 Patient left the ED. hb Signatures: Dispatcher [employer] EDColette Matt, Reg Catarino Dustin Juarez MD MD rn Marlene Holt RN RN hb
--- NOTE | 2023-02-08 10:50 | EDPHYS ---
Physician Documentation [facility] Name: Maria Luisa Calzada Age: 37 yrs Sex: Female : 1985 Arrival Date: 02/08/2023 Time: 09:46 Bed 10 Private MD: ED Physician Dustin Juarez HPI: 02/08 09:58 This 37 yrs old Female presents to ER via Ambulatory with complaints of Foot Injury, rn Ankle Injury. 09:58 The patient presents with an injury, pain. The complaints affect the left foot. Onset: rn The symptoms/episode began/occurred yesterday. Modifying factors: The symptoms are alleviated by elevation of extremity, the symptoms are aggravated by weight bearing, movement. Associated signs and symptoms: Pertinent positives: swelling, Pertinent negatives: warmth, weakness. Severity of symptoms: At their worst the symptoms were moderate, in the emergency department the symptoms are unchanged. The patient has not experienced similar symptoms in the past. Patient reports foot and ankle pain after misstep off of a stepstool yesterday. Slight improvement after resting it overnight but still hurting and hurts to bear weight. Pain just underneath the lateral malleolus of the left ankle, no proximal pain or other injury.. Historical: - Allergies: 09:54 Latex; hb - Home Meds: 09:54 sertraline oral [Active]; hb - PMHx: 09:54 None; hb - PSHx: 09:54 Hysterectomy; hb - Immunization history:: Adult Immunizations up to date. - Social history:: Smoking status: Patient denies any tobacco usage or history of. - Family history:: not pertinent. - Hospitalizations: : No recent hospitalization is reported. ROS: 09:58 MS/Extremity: Positive for left ankle injury and pain rn Exam: 09:58 Constitutional: This is a well developed, well nourished patient who is awake, alert, rn and in no acute distress. MS/ Extremity: Pulses equal, no cyanosis. Neurovascular intact. Mild tenderness underneath the left lateral malleolus and proximal dorsal foot. Mild swelling. No open wounds. No gross deformity. Vital Signs: 09:53 BP 112 / 79; Pulse 86; Resp 16; Temp 97.2(TE); Pulse Ox 100% on R/A; Weight 72.57 kg; hb Height 5 ft. 3 in. ; Pain 7/10; 09:53 Body Mass Index 28.34 (72.57 kg, 160.02 cm) hb 09:53 Pain Scale: Adult hb MDM: 09:49 Patient medically screened. rn 10:49 Differential diagnosis: fracture, sprain. Differential diagnosis: Ligamentous injury. rn Data reviewed: vital signs, nurses notes. Data reviewed: radiologic studies, plain films, and as a result, I will discharge patient. Independent interpretation of the following test(s) in the Emergency Department X-Ray: My interpretation is X-ray left ankle and foot images negative for acute fracture or dislocation per my interpretation. Counseling: I had a detailed discussion with the patient and/or guardian regarding the historical points, exam findings, and any diagnostic results supporting the discharge/admit diagnosis, radiology results, the need for outpatient follow up, to return to the emergency department if symptoms worsen or persist or if there are any questions or concerns that arise at home. Special discussion: I discussed with the patient/guardian in detail that at this point there is no indication for admission to the hospital. It is understood, however, that if the symptoms persist or worsen the patient needs to return immediately for re-evaluation. Further emergent ED testing is not indicated at this point in time. I discussed with the patient/guardian in detail the need to arrange with the PCP or specialist further outpatient testing, MRI. ED course: I have personally reviewed all of the results, including but not limited to imaging deemed necessary to safely discharge this patient at this time. All results given to and printed out for patient. I personally went over all the results with the patient and answered all questions. Patient will follow-up with PCP and or specialist as discussed. Return precautions given and understood.. 02/08 09:58 Order name: XRAY Ankle LEFT 3 view; Complete Time: 10:46 rn 02/08 09:58 Order name: XRAY Foot LEFT 3 View; Complete Time: 10:46 rn 02/08 10:46 Order name: Walking boot; Complete Time: 10:55 rn Administered Medications: No medications were administered Disposition Summary: 02/08/23 10:50 Discharge Ordered Notes: Location: Home rn Problem: new rn Symptoms: have improved rn Condition: Stable rn Diagnosis - Sprain of unspecified ligament of left ankle, initial encounter rn Followup: rn - With: Private Physician - When: As needed - Reason: Recheck today's complaints, Re-evaluation by your physician Discharge Instructions: - Discharge Summary Sheet rn - Ankle Sprain rn Forms: - Medication Reconciliation Form rn - Thank You Letter rn - Antibiotic analytics intern - Prescription Opioid Use rn - Patient Portal Instructions rn - Leadership Thank You Letter rn Signatures: Dispatcher [employer] Dustin Salas MD MD rn Baxter, Heather, RN RN
[2023-02-08 11:13] VITALS: BP 112/79; TEMP 97.2; O2SAT 100
== END 2023-02-08 11:08 | disposition home or self-care (01) ==
LOC: ER 09:46
DX: S93.402A Sprain of unspecified ligament of left ankle, initial encounter (principal)
CPT/HCPCS: 99282